=== PATIENT | male | born 1950 | race Caucasian/White ===

== ENCOUNTER 2022-07-01 13:24 | Emergency (ER) | payer MEDICARE ==
[~2022-07-01] VITALS: Ht 188 cm; Wt 75.0 kg
[2022-07-01 13:39] VITALS: TEMP 96.3
[2022-07-01] MEDS ORDERED: DESYREL 100MG100 MG PO (13:44)
--- NOTE | 2022-07-01 14:12 | NUR ---
Initial visit; Patient in ICU. Harsh had an accident. He fell and had a severe nose bleed. His neighbor brought him in the Emergency Room. 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
[2022-07-01] MEDS ORDERED: CEPHALEXIN500 M1 PO (15:08)
[2022-07-01 15:59] VITALS: BP 177/92; PULSE 60
== END 2022-07-01 16:01 | disposition home or self-care (01) ==
LOC: COL.ER 13:24
DX: S01.511A Laceration without foreign body of lip, initial encounter (principal); S61.412A Laceration without foreign body of left hand, initial encounter; W10.9XXA Fall (on) (from) unspecified stairs and steps, initial encounter; Y92.480 Sidewalk as the place of occurrence of the external cause